=== PATIENT | female | born 1965 | race Two or more races ===

== ENCOUNTER 2022-07-14 10:15 | Inpatient (IN) | payer OTHER ==
[~2022-07-14] VITALS: Ht 165.1 cm; Wt 65.8 kg
[2022-07-14] MEDS ORDERED: SYNTHROID88 MCG PO (12:21)
[2022-07-14] MEDS ORDERED: TOPROL XL25 M1 PO (12:22)
[2022-07-14] MEDS ORDERED: ZESTRIL5 MG PO (12:22)
[2022-07-18] MEDS ORDERED: PERCOCET 10-321 EACH PO (11:09)
== END 2022-07-18 13:33 | disposition home or self-care (01) | DRG 330 ==
LOC: O/R 07-15 05:53 → SURH 07-15 09:30 → SURG 07-15 17:09 → SURH 07-15 19:09
PROVIDERS: ADMIT Colon & Rectal Surgery; ATTEND Colon & Rectal Surgery
PROC: 0DBP4ZZ Excision of Rectum, Percutaneous Endoscopic Approach (ICD-10-PCS; 2022-07-15)
PROC: 0DJD8ZZ Inspection of Lower Intestinal Tract, Via Natural or Artificial Opening Endoscopic (ICD-10-PCS; 2022-07-15)
PROC: 0DTN4ZZ Resection of Sigmoid Colon, Percutaneous Endoscopic Approach (ICD-10-PCS; principal; 2022-07-15 09:30)
PROC: 4A12X4Z Monitoring of Cardiac Electrical Activity, External Approach (ICD-10-PCS; 2022-07-16)
DX: K57.32 Diverticulitis of large intestine without perforation or abscess without bleeding (principal); D68.8 Other specified coagulation defects; Z20.822 Contact with and (suspected) exposure to COVID-19; I34.1 Nonrheumatic mitral (valve) prolapse